=== PATIENT | male | born 1985 | race Caucasian/White ===

== ENCOUNTER 2016-10-07 22:08 | Observation (INO) ==
[2016-10-07] MEDS ORDERED: Ondansetron 4 MG/2 ML VIAL IVP ONE (22:19)
[2016-10-07] MEDS ORDERED: Ketorolac 15 MG/ML VIAL IVP ONE (22:19)
[2016-10-07] MEDS ORDERED: *HR* HYDROmorphone (PF) 1 MG/ML SYRINGE IVP ONE (22:19)
[2016-10-07] MEDS ORDERED: 0.9 % Sodium Chloride 1,000 ML IVC ONE (22:19)
--- NOTE | 2016-10-07 22:37 | Emergency Department Note ---
Disposition Clinical Impression: Calculi, ureter Disposition: Admitted As Inpatient Condition: Good Referrals: NO,PCP [Primary Care Provider] - Forms: Work/School Release, ED Satisfaction Letter Time of Disposition: 01:39 General Adult HPI - General Chief complaint: ED Abdominal Pain Stated complaint: "kidney stone" Time Seen by Provider: 10/07/16 22:16 Source: patient, family Limitations: no limitations Nursing Notes Reviewed: Yes Vital Signs Reviewed: Yes - History of Present Illness HPI Narrative: Two-day history of left flank pain. Was seen here yesterday and diagnosed with a 4 mm kidney stone. Has tried Percocets this did relieve his pain initially. He states he has been vomiting today and cannot keep the Percocet down. He is presenting to the emergency department now. His had no episodes of vomiting since he has been here. He states the pain radiates down to his left groin. Pain Scale: 10 - Related Data Previous Rx's Medication Instructions Recorded Ondansetron ODT [Zofran ODT] 4 mg SL Q6HR PRN #12 tab.rapdis 10/06/16 OxyCODONE/APAP 5/325 [Percocet 1 each PO Q4HR PRN #12 tablet 10/06/16 5/325 MG] Tamsulosin [Flomax] 0.4 mg PO DAILY #5 cap.er.24h 10/06/16 Allergies Allergy/AdvReac Type Severity Reaction Status Date / Time No Known Allergies Allergy Verified 10/06/16 12:32 All systems ED: reviewed and negative except as stated. Constitutional: Denies: fever, chills ENT ED: Denies: congestion Cardiovascular: Denies: chest pain, palpitations, syncope Respiratory: Denies: cough, dyspnea, wheezes Gastrointestinal: Reports: nausea, vomiting. Denies: abdominal pain, diarrhea, hematemesis, melena, hematochezia Genitourinary: Reports: frequency (Decrease. States he has not been able to urinate today.). Denies: urgency, dysuria, hematuria Musculoskeletal: Denies: back pain, neck pain Integumentary: Denies: rash, abrasion Neurological: Denies: headache, weakness Past Medical History - Past Medical History Medical history: Reports: kidney stones Psychiatric history: Reports: no psych history - Social History Smoking Status: Never smoker Smokeless Tobacco Status: Yes Alcohol use: Reports: occasionally Drug use: Reports: none Physical Exam - General Limitations: no limitations General appearance: alert, in distress (Does appear in moderate pain) - Head Head exam: atraumatic, normocephalic, normal inspection - Eye Eye exam: Present: normal appearance, PERRL, EOMI. Absent: scleral icterus - ENT ENT exam: normal exam, normal oropharynx, mucous membranes moist - Neck Neck exam: Present: normal inspection, full ROM, trachea midline. Absent: tenderness, meningismus, lymphadenopathy - Chest Chest inspection: Present: normal inspection, symmetric chest wall rise. Absent : tenderness - Respiratory Respiratory exam: Present: normal lung sounds bilaterally. Absent: respiratory distress - Cardiovascular Cardiovascular exam: Present: regular rate, normal rhythm, normal heart sounds - Abdominal Exam Abdominal exam: Present: soft, Non-Tender, normal bowel sounds. Absent: tenderness, distention, guarding, rebound, rigidity, organomegaly - Extremities Exam Extremities exam: Present: normal inspection, full ROM, normal capillary refill. Absent: tenderness, pedal edema - Back Exam Back exam: Present: normal inspection, full ROM, CVA tenderness (L). Absent: tenderness, CVA tenderness (R) - Neurological Exam Neurological exam: Present: alert, oriented X3 - Psychiatric Psychiatric exam: Present: normal affect, normal mood - Skin Skin exam: Present: warm, dry, intact, normal color Course Course Narrative: Now patient resting on the side of the bed holding his back appears to be in some moderate pain. He states that he has had a kidney stone. He states he was seen here yesterday for the stone diagnosed with a 4 mm left ureteral stone. He is only had one other kidney stone before and he passed this without surgery. He has not seen a urologist. He states that he went home and slept until 5:30 this morning. He felt okay area the states at that time he woke up and had some pain so she gave him a Percocet. She states that he then began to vomit. She gave him a Zofran pill and some Tylenol. She states that he subsequently vomited this back up as well. They attempted one more Percocet later in the day. He was unable to keep that down either. Severe presenting to the emergency department at this time. He states that he has not urinated today. He has an pain to his left back that radiates down to his left groin. He has no abdominal pain on exam. He is well-appearing denying shortness of breath or fevers. He states that he does have some chills. We will provide patient with pain relief and anti-emetics or he is here. We will attempt to have patient give us a urine sample. We will also check a creatinine level. He does have a CT that was performed yesterday that showed a 4 mm nonobstructing ureteral stone in the distal ureter. - Reevaluation(s) Reevaluation #1: Patient reassessed. He states that he is still in pain the initial pain medication did help somewhat. He is agreeable to discharge after his pain is managed. I discussed that we will give him Zofran ODT as well as to take his Percocet scheduled sedative for breakthrough pain. He expresses understanding. I also discussed with him that his creatinine level is normal. He did urinate while he is here. We have received a UA and it does not appear as if he has a urinary tract infection. Time: 00:31 Reevaluation #2: Patient does not appear to have a UTI. His creatinine is normal. He is complaining of left flank pain still. We will give him a third dose of Dilaudid and admit for intractable pain. Time: 01:37 - Consultations Consultation #1: accepted patient in stable condition. Time: 01:38 Vital Signs Temperature 97.7 F 10/07/16 22:09 Pulse Rate 87 10/07/16 22:09 Respiratory Rate 18 10/07/16 22:09 Blood Pressure 156/98 10/07/16 22:09 O2 Sat by Pulse Oximetry 99 10/07/16 22:09 Temperature 97.7 F 10/07/16 22:09 Pulse Rate 64 10/08/16 00:54 Respiratory Rate 18 10/08/16 00:54 Blood Pressure 146/96 10/08/16 00:54 O2 Sat by Pulse Oximetry 100 10/08/16 00:54 Oxygen Delivery Oxygen Delivery Room Air Medical Decision Making - Lab Data Lab results reviewed: Yes I reviewed the patient's lab results. Result diagrams: 10/07/16 22:47 Lab Results 10/07/16 10/07/16 Range/Units 22:47 23:35 Creatinine 1.00 (0.72-1.25) mg/dL Est GFR ( Amer) > 60 (> 60) Est GFR (Non-Af Amer) > 60 (> 60) Urine Color Yellow (Yellow) Urine Clarity Clear (Clear) Urine pH 5.5 (5.0-8.0) pH Units Ur Specific [place] 1.025 (1.010-1.025) Urine Protein Negative (Neg-Trace) mg/dL Urine Glucose (UA) Normal (Normal) mg/dL Urine Ketones Trace H (Negative) mg/dL Urine Blood Moderate H (Negative) Urine Nitrite Negative (Negative) Urine Bilirubin Negative (Negative) Urine Urobilinogen Normal (Normal) mg/dL Ur Leukocyte Esterase Negative (Negative) Urine Microscopic RBC 3-5 H (0-3) per hpf Urine Microscopic WBC 0-3 (0-3) per hpf Urine Bacteria Few (None-Few) per hpf Urine Mucus Few (Few) - Radiology Data Radiology results reviewed: Yes I reviewed the patient's radiology results.
--- NOTE | 2016-10-07 22:38 | Emergency Department Note ---
START Narrative - START START: I examined this patient and my medical decision-making was reviewed with the PRESCHOOL HEAD TEACHER/PA/Advanced Practice Nurse/Resident Physician. I agree with the documented findings, disposition and treatment plan as described except to the extent set forth below. ED attending note: Patient seen with emergency medicine resident Dr. Glynn. Please see a copy of his note for details of the H&P, evaluation, management and disposition of this patient. We independently had [id number] contact with the patient Briefly: A 31-year-old male presents with left flank pain. Was seen yesterday by Dr. PASCAL, CT imaging was positive for ureterolithiasis with a 4 mm obstructing stone. Patient was sent out with Zofran and narcotic pain medications he has been unable to keep this down and presents with recurrent left flank pain. Patient will have parenteral fluids anti-medics and narcotic analgesics. We will check a basic metabolic panel. Disposition pending.
[2016-10-07 23:13] LABS: eGFR For African Americans > 60 (> 60); eGFR For Non-African Americans > 60 (> 60)
[2016-10-07 23:58] LABS: Bilirubin,Urine Negative (Negative); Blood,Urine Moderate (Negative); Glucose,Urine (UA) Normal (Normal); Ketones,Urine Trace mg/dL (Negative); Leukocyte Esterase,Urine Negative (Negative); Nitrite,Urine Negative (Negative); PH,Urine 5.5 pH Units (5.0-8.0); Protein,Urine Negative (Neg-Trace); Specific Gravity,Urine 1.025 (1.010-1.025); Urobilinogen,Urine Normal (Normal)
[2016-10-08 00:02] LABS: Color,Urine Yellow (Yellow)
[2016-10-08 00:03] LABS: Clarity,Urine Clear (Clear)
[2016-10-08 00:09] LABS: Bacteria,Urine Few per hpf (None-Few); Mucus,Urine Few (Few); WBC,Urine 0-3 per hpf (0-3)
[2016-10-08] MEDS ORDERED: *HR* HYDROmorphone (PF) 1 MG/ML SYRINGE IVP ONE ×2 (00:31→01:24)
[2016-10-08] MEDS ORDERED: Naloxone 0.4 MG/ML INJ IVP PRN ×3 (03:00→19:55)
[2016-10-08] MEDS ORDERED: *HR* HYDROmorphone (PF) 1 MG/ML SYRINGE IVP PRN ×2 (03:00→18:10)
[2016-10-08] MEDS ORDERED: Acetaminophen 325 MG TABLET PO PRN ×2 (03:00→19:55)
[2016-10-08] MEDS ORDERED: *HR* OxyCODONE Immed Rel 5 MG TABLET PO PRN ×2 (03:00→19:55)
[2016-10-08] MEDS ORDERED: Ondansetron 4 MG/2 ML VIAL IVP PRN ×3 (03:00→19:55)
--- NOTE | 2016-10-08 03:52 | Internal Med History&Physical ---
Date of Encounter: 10/08/16 Time of Encounter: 03:50 Assessment and Plan (1) Calculi, ureter Current visit: Yes Status: Acute Patient is 4 mm left ureteral stone on CT with mild hydronephrosis. Outpatient management was attempted but failed due to significant pain and unable to sustain by mouth intake. Patient will be admitted for pain control, antiemetics , IV fluids. We will consult urology. (2) DVT prophylaxis Current visit: Yes Status: Acute Not indicated as the patient is ambulatory. Internal Medicine - H&P: HPI Chief complaint: Abdominal pain Admitted From: Emergency Dept Plans for Post Hospital Care: Home History of present illness: Mr. Duron is a 31 year old male with history of kidney stone presents with left flank pain. Patient states this pain began 2 days ago and is a sharp pain on the left side of his back that radiates around into his groin. He states he had a similar pain 6 years ago when he had a kidney stone but this is more severe. He reports nausea and vomiting, decreased urine output, chills. Patient was seen in the emergency department yesterday and was diagnosed with a kidney stone and sent home with oral medications but he was unable to keep these down and his pain was severe so he returned. He denies fevers, chest pain , shortness of breath, diarrhea, hematuria. Past Med Surg Social Fam HX - Past Medical History Medical history: kidney stones Psychiatric history: no psych history - Past Surgical History Surgical History: no surgical history - Social History Smoking Status: Never smoker Smokeless Tobacco Status: Yes Alcohol use: rarely Drug use: none - Family History Father Hx Family Medical Disorders: Yes (Kidney stones) Internal Medicine - H&P: Meds Ondansetron ODT [Zofran ODT] 4 mg SL Q6HR PRN #12 tab.rapdis 10/06/16 [Rx] OxyCODONE/APAP 5/325 [Percocet 5/325 MG] 1 each PO Q4HR PRN #12 tablet 10/06/16 [Rx] Tamsulosin [Flomax] 0.4 mg PO DAILY #5 cap.er.24h 10/06/16 [Rx] Allergies No Known Allergies Allergy (Verified 10/06/16 12:32) All Systems PM: A 10-system review of systems was performed and is negative for pertinent findings except as documented above in the HPI. - Constitutional Vitals: Temp Pulse Resp BP Pulse Ox 97.8 F 76 16 145/96 98 10/08/16 02:52 10/08/16 02:52 10/08/16 02:52 10/08/16 02:52 10/08/16 02:52 General appearance: Present: A&O X 3, obese Exam: Appears uncomfortable - Head Head exam: Present: atraumatic, normal inspection, normocephalic - Eye Eye exam: Present: EOMI, PERRL - ENT ENT exam: Present: mucous membranes moist - Neck Neck exam general surgery: Present: full ROM. Absent: tenderness - Respiratory Respiratory exam: Present: CTAB. Absent: rales, rhonchi, wheezes - Cardiovascular Cardiovascular exam: Present: RRR. Absent: gallop, rubs, systolic murmur - GI/Abdominal GI/Abdominal exam: Present: normal bowel sounds, soft. Absent: distended, tenderness - Extremities Exam Extremities exam: Present: warm. Absent: pedal edema, tenderness - Back Exam Back exam: Present: CVA tenderness (L) - Neurological Exam Neurological exam: Present: alert, CN II-XII intact, oriented X3, no focal deficits - Skin Skin exam: Present: dry, intact, warm Internal Med - H&P Results - Labs CBC & Chem 7: 10/07/16 22:47
[2016-10-08] MEDS: 0.9 % Sodium Chloride 1,000 ML IVC SCH ×2 (04:21→11:36)
[2016-10-08] MEDS: Ketorolac 30 MG/ML VIAL IVP PRN ×2 (04:21→11:33)
[2016-10-08] MEDS ORDERED: Famotidine 20 MG TABLET PO SCH (07:30)
--- NOTE | 2016-10-08 07:42 | Urology - Consult Note ---
Date of Encounter: 10/08/16 Time of Encounter: 07:40 - Assessment and Plan (1) Calculi, ureter Current Visit: Yes Status: Acute Assessment and plan: 31-year-old man with a history of a distal left ureteral stone. He has been admitted for pain control. I recommend proceeding with a left ureteroscopy, laser lithotripsy, and stent placement. I informed him of the risks of surgery which include but are not limited to bleeding, infection, injury to other structures, need for further procedures, stent irritation, incomplete treatment , need for open repair, need for nephrostomy tube, and the risk of anesthesia. Urology CN:HPI Consult date: 10/08/16 Reason for consult Urology: Other (left ureteral stone) Requesting physician: Richard Medrano History of present illness: 31-year-old man presents with a history of left flank pain for 2 days. The pain is located in the left flank and radiates to the groin. It is sharp. It is fairly severe. He was seen on October 06, 2016 in the emergency department. A CT scan showed a 4 mm left distal ureteral stone. He was discharged home, but returned yesterday. The pain is still present. He has had nausea and emesis. He denies any fevers or chills. He says he previously had a stone but was able to pass that. Past Med Surg Social Fam HX - Past Medical History Medical history: kidney stones Psychiatric history: no psych history - Past Surgical History Surgical History: no surgical history - Social History Smoking Status: Never smoker Smokeless Tobacco Status: Yes Alcohol use: rarely Drug use: none - Family History Father Hx Family Medical Disorders: Yes (Kidney stones) Medications and Allergies Ondansetron ODT [Zofran ODT] 4 mg SL Q6HR PRN #12 tab.rapdis 10/06/16 [Rx] OxyCODONE/APAP 5/325 [Percocet 5/325 MG] 1 each PO Q4HR PRN #12 tablet 10/06/16 [Rx] Tamsulosin [Flomax] 0.4 mg PO DAILY #5 cap.er.24h 10/06/16 [Rx] Allergies No Known Allergies Allergy (Verified 10/06/16 12:32) Review of Systems - Constitutional no chills, no fever(s) - EENT Nose, mouth and throat: no dizziness - Cardiovascular no chest pain - Respiratory no dyspnea - Gastrointestinal no nausea, no vomiting - Genitourinary flank pain, no hematuria - Musculoskeletal no back pain - Integumentary no erythema, no rash - Neurological no weakness - Psychiatric no suicidal ideation - Hematologic/Lymphatic no easy bleeding - Allergic/Immunologic no wheezing Exam Initial Vital Signs Temp Pulse Resp BP Pulse Ox 97.7 F 87 18 156/98 99 10/07/16 22:09 10/07/16 22:09 10/07/16 22:09 10/07/16 22:09 10/07/16 22:09 - General physical appearance Present: well developed, well nourished, no distress - Eyes Absent: icteric - ENT Present: normal nares - Neck Present: trachea midline - Respiratory Present: normal respiratory effort - Cardiovascular Cardiovascular exam IM: RRR - Abdomen Abdomen: Present: soft Urology Results - Labs 10/07/16 22:47 Abnormal lab results POC Glucose 94 (58-89) H 10/08/16 05:29 Urine Ketones Trace mg/dL (Negative) H 10/07/16 23:35 Urine Blood Moderate (Negative) H 10/07/16 23:35 Urine Microscopic RBC 3-5 per hpf (0-3) H 10/07/16 23:35 All other labs normal. - Imaging CT scan - abdomen: report reviewed, image reviewed CT scan - pelvis: report reviewed, image reviewed Consult Discharge Plan - Plan Referrals: NO,PCP [Primary Care Provider] -
--- NOTE | 2016-10-08 17:35 | Anesthesia Evaluation PreOp ---
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: Denies Any Significant HX Other Medical History: Denies Any Significant HX Anesthesia History: No Prior Anesthetic Complications Alcohol Use: rarely Drug use: none Medications and Allergies Ondansetron ODT [Zofran ODT] 4 mg SL Q6HR PRN #12 tab.rapdis 10/06/16 [Rx] OxyCODONE/APAP 5/325 [Percocet 5/325 MG] 1 each PO Q4HR PRN #12 tablet 10/06/16 [Rx] Tamsulosin [Flomax] 0.4 mg PO DAILY #5 cap.er.24h 10/06/16 [Rx] Acetaminophen [Tylenol] 1,000 mg PO Q6HR PRN 10/08/16 [History] Ibuprofen [Motrin] 400 mg PO Q6HR PRN 10/08/16 [History] Loratadine [Allergy Relief] 10 mg PO DAILY 10/08/16 [History] Allergies No Known Allergies Allergy (Verified 10/06/16 12:32) - Meds/Allergy Pre-op Review Medications Reviewed: Yes Allergies Reviewed: Yes Beta Blockers on Current Med List: No Anesthesia Results - Labs 10/07/16 22:47 Laboratory Tests 10/06/16 10/06/16 10/07/16 13:09 13:09 22:47 Hgb 16.1 Hct 46.5 Plt Count 327 Sodium 140 Potassium 4.1 BUN 15 Creatinine 1.00 Anesthesia Exam O2 Sat Height 1.78 m Height 1.78 m Weight 148.892 kg Weight 129.274 kg O2 Sat by Pulse Oximetry 95 O2 Sat by Pulse Oximetry 97 O2 Sat by Pulse Oximetry 100 O2 Sat by Pulse Oximetry 98 O2 Sat by Pulse Oximetry 95 O2 Sat by Pulse Oximetry 100 O2 Sat by Pulse Oximetry 99 Vital Signs Temp Pulse Resp BP Pulse Ox 97.7 F 87 18 156/98 99 10/07/16 22:09 10/07/16 22:09 10/07/16 22:09 10/07/16 22:09 10/07/16 22:09 Height: 5'10 Weight: 328 lbs NPO (# of Hours): MN Pain Scale: 1 - HEENT Pupil (Motor): Pupils equal, EOMI Mallampati: II Teeth: Normal Oral Opening: Greater than 3 - PHOTOVOLTAIC TESTING TECHNICIAN LOC: Oriented PHOTOVOLTAIC TESTING TECHNICIAN Motor: Normal RUE, Normal LUE, Normal RLE, Normal LLE, Normal Face PHOTOVOLTAIC TESTING TECHNICIAN Sensory: Normal: RUE, LUE, RLE, LLE, Face - Cardiac Rhythm: Regular Murmur: None JVD: No Carotid Bruit: No - Pulmonary Breath Sounds: bilateral Clear Respiratory Effort: Symmetrical Anesthesia Assess/Plan ASA Score: 3 (Morbid Obesity, Chews Tobacco) Modified Sherri Scale for Level of Consciousness: Cooperative, oriented, and tranquil Anesthetic Plan: General Monitoring Plan: Standard Monitors Recovery Plan: PACU (Discussed GA, agrees to proceed)
[2016-10-08] MEDS ORDERED: *HR* HYDROmorphone 2 MG/ML SYRINGE ONE (17:47)
[2016-10-08] MEDS ORDERED: *HR* Midazolam HCl 2 MG/2 ML VIAL ONE (17:47)
[2016-10-08] MEDS ORDERED: Ondansetron 4 MG/2 ML VIAL ONE (17:47)
[2016-10-08] MEDS ORDERED: *HR* Propofol 200 MG/20 ML VIAL IVP ONE (17:47)
[2016-10-08] MEDS ORDERED: Dexamethasone 4 MG/ML VIAL ONE (17:47)
[2016-10-08] MEDS ORDERED: Lidocaine -MPF 2% 2 ML VIAL ONE (17:48)
[2016-10-08] MEDS ORDERED: *HR* Meperidine 25 MG/ML SYRINGE IVP PRN (18:10)
--- NOTE | 2016-10-08 18:43 | Operative Note ---
Date of procedure: 10/08/16 Pre-op diagnosis: Left ureteral stone Post-op diagnosis: same Procedure: Left ureteroscopy, laser lithotripsy, basket stone extraction, and left ureteral stent placement. Implants: 6 Slov[place] x 26cm JJ stent Complications: none Anesthesia: LUIS Surgeon: Jono Cuellar Estimated blood loss (cc): 1 Specimen: left ureteral stone Condition: stable Disposition: PACU Procedure in Detail: Indications: Mr. Duron is a 31-year-old gentleman who has a history of left flank pain. A CT scan showed a 4 mm stone in the distal left ureter. He elected to undergo a left ureteroscopy, laser lithotripsy, and stent placement. He is aware of the risks of the procedure including but not limited to bleeding, infection, injury to other structures, need for further procedures, stent irritation, and the risk of anesthesia. He is willing to proceed. Procedure: After informed consent was obtained the patient was brought back to the operating room and placed in supine position. A time out was performed. General anesthesia was administered and an LMA was placed. He was then placed in the lithotomy position. He was prepped and draped in the usual sterile fashion. Cystoscopy was performed. The anterior urethra was normal. There was no evidence of bladder tumors. The ureteral orifices were in the normal orthotopic position. The Zip wire was placed in the leftt ureteral orifice and brought into the kidney under fluoroscopic guidance. The ureter was dilated with the 8/ 10 Slovak ureteral dilator. I then advanced the semirigid ureteroscope into the ureter. The ureter was rather tight. I place a sensor wire through the scope and brought this up the ureter into the kidney. The scope was advanced over this wire up to the level stone. The wire was removed. The stone was seen in the distal ureter. The stone was fragmented using the 200 micron fiber into small pieces. Once adequate stone fragmentation was performed the stone fragments were basket extracted. The ureter had a slight amount of submucosal undermining from the scope getting up to the stone. The true lumen remained intact. Once all the larger stone fragments were removed, a 6 [place] by 26cm JJ stent was then placed with good curl seen in the kidney and the bladder. The dangle string was left intact. The bladder was drained. The string was secured to the penis using a Tegaderm. The patient was then awakened from general anesthesia and brought to recovery room in good condition. All sponge, needle, and instrument counts were correct.
--- NOTE | 2016-10-08 18:48 | Urology Progress Note ---
Date of Encounter: 10/08/16 Time of Encounter: 18:47 - Assessment and Plan (1) Calculi, ureter Current Visit: Yes Status: Acute Assessment and plan: He can be discharged home tonight if he is feeling well. He should follow up with me in 1 week for a stent removal. If he feels comfortable, he can remove the stent on his own by pulling on the string. He should return for any fevers, chills, nausea, vomiting, or worsening pain. Progress Note Narrative: This is a postoperative note for Francesco Duron after a left ureteroscopic stone extraction. The surgery went well. We removed his stone. He has an indwelling stent. Objective Initial Vital Signs Temp Pulse Resp BP Pulse Ox 97.7 F 87 18 156/98 99 10/07/16 22:09 10/07/16 22:09 10/07/16 22:09 10/07/16 22:09 10/07/16 22:09 - Labs 10/07/16 22:47 Consult Discharge Plan - Plan Additional Instructions: 1. The patient can follow up in 1 week for a stent removal. He has a string attached to the stent. If he feels comfortable, he can remove the stent by pulling the string himself. We would do this in one week. 2. He should expect to feel flank pain with voiding. 3. The patient should call for any fevers, chills, nausea, emesis, or uncontrolled pain. 4. Please provide a work excuse if necessary for up to 1 week off. Referrals: Jono Cuellar MD [Partnered Physician] - (1 week for string stent removal)
--- NOTE | 2016-10-08 19:14 | Anesthesia Evaluation Post Op ---
Date of Encounter: 10/08/16 Time of Encounter: 19:13 - Vital Signs Vital Signs: Vital Signs Temperature 97.7 F 10/07/16 22:09 Pulse Rate 87 10/07/16 22:09 Respiratory Rate 18 10/07/16 22:09 Blood Pressure 156/98 10/07/16 22:09 O2 Sat by Pulse Oximetry 99 10/07/16 22:09 Temperature 98.1 F 10/08/16 18:42 Pulse Rate 82 10/08/16 19:02 Respiratory Rate 16 10/08/16 19:02 Blood Pressure 122/65 10/08/16 19:02 O2 Sat by Pulse Oximetry 94 10/08/16 19:02 Oxygen Delivery Oxygen Delivery Room Air - Lungs Lungs: Clear Ascult./Percussion - Airway Airway: Non-obstructed - Cardiovascular Regular Rate - Mental Status Mental Status: Alert & Oriented, Answers Appropriately - Pain Pain Scale: 2 Pain Scale used: Numeric (1 - 10) - Nausea Vomiting Nausea Vomiting: Not Present - Hydration Hydration: Ice chips, Able to void - Discharge PostOp Status: Transfer Patient to floor
[2016-10-08] MEDS ORDERED: Ketorolac 30 MG/ML VIAL IVP PRN (19:55)
[2016-10-08] MEDS ORDERED: 0.9 % Sodium Chloride 1,000 ML IVC SCH (19:55)
[2016-10-08 22:11] VITALS: BP 113/63
[2016-10-09] MEDS ORDERED: Famotidine 20 MG TABLET PO SCH (07:30)
== END 2016-10-08 22:33 | disposition home or self-care (01) ==
LOC: 3ANU 22:08 → EMEROO 22:08 → 3ANU 10-08 02:36
PROVIDERS: ADMIT Internal Medicine; ATTEND Internal Medicine